=== PATIENT | male | born 1940 | race Caucasian/White ===

== ENCOUNTER → 2021-07-01 | Outpatient (CLI) | payer OTHER ==
[~2021-07-01] VITALS: Ht 180.3 cm; Wt 108.9 kg
[~2021-07-01] MED LIST: FISH OIL 1,001000 M3 PO; IRBESARTAN-HCT1 EAC1 PO; LIPITOR 10 MG10 M1 PO; METFORMIN HCL1000 MG PO; NORVASC10 MG PO
== END ==
LOC: LAB 09:16 → GI 09:16
PROVIDERS: Student in an Organized Health Care Education/Training Program; ATTEND Specialist
DX: Z01.812 Encounter for preprocedural laboratory examination (principal); Z20.822 Contact with and (suspected) exposure to COVID-19
CPT/HCPCS: 62110; 62900

== ENCOUNTER → 2021-07-02 | Outpatient (CLI) | payer OTHER ==
--- NOTE | 2021-07-04 13:08 | PATH ---
[facility] [place] [address] PATHOLOGY RPT PROCEDURE Name: BLAYNE CAMACHO Room #: REG CLI M.R.#: [id number] Admission: 07/02/21 Date of : 44 Discharge: Report #: [id number] Path Case #: [id number] [facility] Accession Number: [id number] . 01 Material submitted: . PART A: colon - TRANSVERSE COLON POLYP FORCEP BIOPSY. Modifiers: transverse PART B: colon - DESCENDING COLON POLYP. Modifiers: descending PART C: sigmoid colon - SIGMOID COLON POLYP PART D: rectum - RECTAL POLYP . 01 Clinical history: . COLONOSCOPY/ HX OF POLYPS . 02 Diagnosis: A. Polyp, transverse colon polyp, endoscopic biopsy: - Hyperplastic polyp. - Negative for dysplasia. . B. Polyp, descending colon polyp, endoscopic biopsy: - Tubular adenoma. - Negative for high-grade dysplasia. . C. Polyp, sigmoid colon polyp, endoscopic biopsy: - Tubular adenoma. - Negative for high-grade dysplasia. . D. Polyp, rectal polyp, endoscopic biopsy: - Tubular adenoma. - Negative for high-grade dysplasia. (IUV:pit; 07/03/2021) QTP 07/03/2021 1350 Local . 02 Electronically signed: . Helena Duckworth MD, Pathologist NPI- [id number] . 01 Gross description: . A. The specimen is received in formalin, labeled "Blayne Camacho, transverse colon polyp". It consists of 3 roche irregular soft tissue fragments ranging from 0.1-0.3 cm in greatest dimension. The specimen is entirely submitted between sponges in A1. . B. The specimen is received in formalin, labeled "Blayne Camacho, descending colon polyp". It consists of a roche polypoid soft tissue fragment measuring 0.4 x 0.2 x 0.2 cm. The specimen is entirely submitted between sponges in B1. . [address] [address] PATHOLOGY RPT PROCEDURE Name: BLAYNE CAMACHO NATHALY Room #: REG CLI [facility].#: [id number] Admission: 07/02/21 Date of : 44 Discharge: Report #: [id number] Path Case #: [id number] C. The specimen is received in formalin, labeled "Blayne Camacho, sigmoid colon polyp". It consists of multiple roche irregular soft tissue fragments ranging from 0.1-0.5 cm grade mention. The specimen is entirely submitted between sponges in C1. . D. The specimen is received in formalin, labeled "Blayne Camacho, rectal polyp". It consists of a roche polypoid soft tissue fragment measuring 0.3 x 0.2 x 0.2 cm. The specimen is entirely submitted between sponges in D1. (MRF; 07/02/2021) MFE/MFE 07/02/2021 1650 Local . 02 Pathologist provided ICD-10: K63.5, D12.4, D12.5, D12.8 . 02 CPT . 340158, [id number], [id number], [id number] Specimen Comment: A courtesy copy of this report has been sent to [phone], [phone] Specimen Comment: [id number] Specimen Comment: Report sent to / DR SCHAEFER Specimen Comment: A duplicate report has been generated due to demographic updates. Performed at: [facility] [address] [place] [address] [address], [place] [id number] MD Leighton Cummins MD Phone: [phone] Performed at: [address] [id number] MD Helena Duckworth MD Phone: [phone]
--- NOTE | 2021-07-11 08:15 | P ---
[facility] [place] [address] PROCEDURE REPORT Name: BELTRAN ABREU Room #: REG CLBecca Howell#: [id number] Admission: 07/02/21 Attend Phys: Arian Bernal Discharge: Date of : 44 Report #: [id number] THIS REPORT FOR: cc: Raad Alba MD, Steven A. MD McElhinney, Christian C. MD ~ cc: Raad Alba MD DATE OF SERVICE: 07/02/2021 PROCEDURES PERFORMED: Colonoscopy with biopsies. HISTORY OF PRESENT ILLNESS: The patient is a 81-year-old male with a history of colon polyps 5 years ago, here for routine followup. Denies any symptoms. No family history of colon cancer. DESCRIPTION OF PROCEDURE: The risks and benefits of the procedure were explained to the patient, those risks including but not limited to bleeding, perforation and the risk of sedation. He understood these risks and gave informed consent. Sedation was given using propofol per anesthesia. Next, a digital rectal exam was initially performed, which was normal. Next, using a standard Olympus colonoscope, the scope was placed in the patient's anus and advanced under direct vision to the cecum. The overall prep was good in most areas. It was fair in some areas, which did limit visualization. The cecum and ileocecal valve were normal in appearance. The ascending colon was normal. In the transverse colon, a 4 mm sessile polyp was noted and removed with cold forceps. In the descending colon, a 3-mm sessile polyp noted and removed with cold forceps. In the sigmoid colon, a 5 mm sessile polyp was noted and removed with cold forceps. In the rectum, a 3 mm sessile polyp was noted and removed with cold forceps. On retroflexion, small nonbleeding internal hemorrhoids were noted. The scope was then withdrawn and the procedure terminated. The patient tolerated the procedure well. IMPRESSION: 1. Four small colonic polyps. 2. Internal hemorrhoids. 3. Otherwise, normal colonoscopy. RECOMMENDATIONS: Await biopsy results. Thank you for allowing me to participate in his care. <ELECTRONICALLY SIGNED> By: Arian Kc MD 07/11/21 0815 1007 1304 Arian Kc MD /nt
== END | disposition home or self-care (01) ==
LOC: GI 08:36
PROVIDERS: ATTEND Specialist
DX: Z12.11 Encounter for screening for malignant neoplasm of colon (principal); Z86.010 Personal history of colon polyps; D12.4 Benign neoplasm of descending colon; D12.5 Benign neoplasm of sigmoid colon; D12.8 Benign neoplasm of rectum; K64.8 Other hemorrhoids; Z79.899 Other long term (current) drug therapy
CPT/HCPCS: 62110; 62900